=== PATIENT | male | born 1950 | race Caucasian/White ===

== ENCOUNTER → 2023-01-24 | Outpatient (CLI) | payer MEDICARE | LOC: LAB 09:50 | DX: E78.2 Mixed hyperlipidemia (principal); G60.9 Hereditary and idiopathic neuropathy, unspecified; K21.9 Gastro-esophageal reflux disease without esophagitis; F51.4 Sleep terrors [night terrors]; G47.33 Obstructive sleep apnea (adult) (pediatric); Z23 Encounter for immunization ==

== ENCOUNTER → 2024-05-16 | Outpatient (CLI) | payer MEDICARE ==
[2024-05-16 14:34] LABS: HEMATOCRIT 42.7 % (42.0-52.0); HEMOGLOBIN 14.5 g/dL (13.5-18.0); MEAN PLATELET VOLUME 8.9 fl (7.4-10.4); RED BLOOD COUNT 4.73 M/mm3 (4.20-5.60); RED CELL DISTRIBUTION WIDTH 12.7 % (11.5-14.5); WHITE BLOOD COUNT 7.4 K/mm3 (4.8-10.8)
[2024-05-16 14:45] LABS: ALBUMIN 4.1 g/dL (3.4-4.8)
[2024-05-16 14:46] LABS: CALCIUM 9.4 mg/dL (8.3-10.5)
[2024-05-16 14:49] LABS: TOTAL BILIRUBIN 0.5 mg/dL (0.2-1.2)
[2024-05-16 14:54] LABS: MAGNESIUM 2.02 mg/dL (1.60-2.60)
[2024-05-17 10:40] LABS: FOLATE (FOLIC ACID) >20.0 ng/mL (2.0-20.0)
== END ==
LOC: LAB 14:21
PROVIDERS: Family Medicine
DX: Z13.1 Encounter for screening for diabetes mellitus (principal); G60.9 Hereditary and idiopathic neuropathy, unspecified; E78.2 Mixed hyperlipidemia

== ENCOUNTER → 2024-07-13 | Outpatient (CLI) | payer MEDICARE | LOC: RAD 14:53 | DX: M16.0 Bilateral primary osteoarthritis of hip (principal); M25.561 Pain in right knee ==

== ENCOUNTER → 2024-07-20 | Outpatient (CLI) | payer MEDICARE | LOC: RAD 10:57 | DX: M47.26 Other spondylosis with radiculopathy, lumbar region (principal) ==